=== PATIENT | female | born 1960 | race Caucasian/White ===

== ENCOUNTER 2021-03-02 17:29 | Emergency (ER) | payer OTHER ==
[2021-03-02] MEDS ORDERED: Nitroglycerin 2% Ointment 1 INCH/1 GM Packet ONE (18:02)
[2021-03-02] MEDS ORDERED: Aspirin 325 MG TAB ONE (18:02)
[2021-03-02 18:40] LABS: #Eosinphils 0.1 10x3/uL (0.0-0.5); #Monocytes 0.6 10x3/uL (0.0-1.1); #Neutrophils 7.1 10x3/uL (1.5-8.4); %Basophils 0.2 % (0.0-2.0); %Eosinophils 1.1 % (0.0-6.0); %Lymphocytes 27.8 % (18.0-47.0); %Monocytes 5.8 % (0.0-10.0); %Neutrophils 64.7 % (40.0-75.0); Mean Corpuscular HGB CONC 33.6 g/dL (32.0-36.0); Mean Corpuscular Hemoglobin 30.5 pg (27.0-33.0); Mean Corpuscular Volume 90.8 fl (81.6-98.3); Mean Platelet Volume 9.6 fl (7.4-10.4); Platelet Count 223 10x3/uL (150-450); RBC Distribution Width 13.6 % (11.5-14.5); Red Blood Cell (RBC) Count 4.26 10x6/uL (3.90-5.03); White Blood Cell (WBC) Count 10.9 10x3/uL (3.5-10.5)
[2021-03-02 18:48] LABS: ALT (SGPT) 14 U/L (8-55); AST (SGOT) 14 U/L (5-34); Albumin 4.2 g/dL (3.5-5.0); Alkaline Phosphatase 100 U/L (40-110); Anion Gap 14 mmol/L (10-20); BUN (Urea Nitrogen) 17 mg/dL (9.8-20.1); Bilirubin, Total 0.5 mg/dL (0.2-1.2); CK (CPK) 30 U/L (29-168); Calc. Creatinine Clearance 0 mL/min (70-130); Calcium 9.6 mg/dL (7.8-10.44); Carbon Dioxide 29 mmol/L (22-29); Chloride 99 mmol/L (98-107); Glucose 103 mg/dL (70-105); Lipase 19 U/L (8-78); Potassium 3.9 mmol/L (3.5-5.1); Protein, Total 7.2 g/dL (6.0-8.3); Sodium 138 mmol/L (136-145)
[2021-03-02] MEDS ORDERED: Acetaminophen 500 MG TAB ONE (21:43)
== END 2021-03-03 00:01 | disposition home or self-care (01) ==
LOC: CSHERS 17:29
DX: R07.9 Chest pain, unspecified (principal); E78.5 Hyperlipidemia, unspecified; Z86.16 Personal history of COVID-19; Z79.899 Other long term (current) drug therapy
CPT/HCPCS: 71045; 71275; 80053; 82550; 83690; 84484; 85025; 85379; 93005

== ENCOUNTER 2021-07-14 12:10 | Outpatient (CLI) | payer OTHER ==
[2021-07-15 07:47] LABS: SARS-CoV-2 PCR by NAA Not Detected (NotDetected)
== END 2021-07-14 12:11 | disposition home or self-care (01) ==
LOC: CSHLAB 12:10
PROVIDERS: ATTEND Surgery
DX: Z20.822 Contact with and (suspected) exposure to COVID-19 (principal)
CPT/HCPCS: U0003; U0005

== ENCOUNTER → 2021-07-16 | Day surgery (SDC) | payer OTHER ==
[2021-07-15 10:03] VITALS: BMI 44.4
[~2021-07-16] MED LIST: Bupivacaine PF 0.5% 30 ML VIAL ONE; EPINEPHrine 1 MG/ML AMP ONE; Fentanyl 100 MCG/2 ML VIAL ONE; Glycopyrrolate 0.2 MG/ML 5 ML SYRINGE ONE; Ketorolac Tromethamine 30 MG/ML VIAL ONE; Lidocaine 1% MPF 2 ML VIAL ONE; Lidocaine 1% PF 5 ML VIAL ONE; Midazolam HCl 2 mg/2 ml Vial ONE; Morphine 4 MG/ML VIAL ONE; Ondansetron PF 4 MG/2 ML Vial ONE; PROPOFOL 20 ML ONE; SUGAMMADEX SODIUM 500 MG/5 ML VIAL ONE; Scopolamine 1.5 mg/72 hour Patch ONE; ceFAZolin 2 GM/Dextrose 50 ML IVPB ONE; ePHEDrine Sulfate 50 MG/10 ML VIAL ONE; traMADol HCl 50 MG TAB ONE; traMADol HCl 50 MG TAB PO PRN
== END | disposition home or self-care (01) ==
LOC: CSHSDC 10:53
PROVIDERS: ATTEND Surgery
PROC: 0FT44ZZ Resection of Gallbladder, Percutaneous Endoscopic Approach (ICD-10-PCS; principal; 2021-07-16)
DX: K80.10 Calculus of gallbladder with chronic cholecystitis without obstruction (principal); Z79.899 Other long term (current) drug therapy; F41.9 Anxiety disorder, unspecified; F32.9 Major depressive disorder, single episode, unspecified; E66.9 Obesity, unspecified; E78.5 Hyperlipidemia, unspecified
CPT/HCPCS: 88304; J0171; J0690; J1885; J2250; J2270; J2405; J2704; J3010; S0020

== ENCOUNTER 2021-10-26 17:40 | Observation (INO) | payer OTHER ==
[2021-10-26 18:06] LABS: Bilirubin 1+ (Negative); Blood, Urine 50 (Negative); Clarity Cloudy (Clear); Glucose, Urine (Dipstick) Normal (Negative); Ketone, Urine 50 mg/dL (Negative); Leukocyte 500 (Negative); Nitrite Negative (Negative); Protein, Urine (Dipstick) 100 mg/dl (Neg-Trace); Specific Gravity, Urine 1.015 (1.002-1.036); pH, Urine 6.5 (5.0-9.0)
[2021-10-26 18:15] LABS: Bacteria/HPF 4+ HPF (None Seen); Mucous/LPF 3+ LPF (<2+); RBC/HPF 0-3 HPF (0-3); WBC/HPF 21-50 HPF (0-3)
[2021-10-26 18:19] LABS: #Monocytes 0.7 10x3/uL (0.0-1.1); #Neutrophils 6.8 10x3/uL (1.5-8.4); %Basophils 0.3 % (0.0-2.0); %Eosinophils 0.3 % (0.0-6.0); %Lymphocytes 19.1 % (18.0-47.0); %Neutrophils 72.3 % (40.0-75.0); Hemoglobin 12.6 g/dL (12.0-15.5); Mean Corpuscular Hemoglobin 30.1 pg (27.0-33.0); Mean Corpuscular Volume 91.2 fl (81.6-98.3); Mean Platelet Volume 9.6 fl (7.4-10.4); Platelet Count 191 10x3/uL (150-450); RBC Distribution Width 14.3 % (11.5-14.5); Red Blood Cell (RBC) Count 4.19 10x6/uL (3.90-5.03); White Blood Cell (WBC) Count 9.3 10x3/uL (3.5-10.5)
[2021-10-26 18:25] LABS: BHCG - Serum Negative (NEGATIVE); Pregs Control Background? CLEAR/WHITE (CLR/WHITE); Pregs Control Bar Appear? YES (CONTROL BAR)
[2021-10-26 18:31] LABS: ALT (SGPT) 23 U/L (8-55); AST (SGOT) 30 U/L (5-34); Albumin 4.1 g/dL (3.4-4.8); Alkaline Phosphatase 102 U/L (40-110); Anion Gap 17 mmol/L (10-20); BUN (Urea Nitrogen) 10 mg/dL (9.8-20.1); Bilirubin, Total 0.9 mg/dL (0.2-1.2); Calc. Creatinine Clearance 0 mL/min (70-130); Calcium 8.5 mg/dL (7.8-10.44); Carbon Dioxide 30 mmol/L (23-31); Chloride 99 mmol/L (98-107); Globulin 2.9 g/dL (2.4-3.5); Glucose 128 mg/dL (80-115); Lipase 9 U/L (8-78); Potassium 3.5 mmol/L (3.5-5.1); Sodium 142 mmol/L (136-145)
[2021-10-26] MEDS ORDERED: Ondansetron PF 4 MG/2 ML Vial ONE (18:34)
[2021-10-26] MEDS ORDERED: Piperacillin/Tazobactam 3.375 GM VIAL ONE (19:21)
[2021-10-26 19:30] LABS: SARS-CoV-2 NAA Rapid Test Not Detected (NotDetected)
[2021-10-26] MEDS ORDERED: Morphine 4 MG/ML VIAL ONE (20:18)
[2021-10-26] MEDS ORDERED: Ibuprofen 200 MG TAB ONE (21:42)
[2021-10-26] MEDS ORDERED: Sodium Chloride 0.9% 1,000 ML IV SCH (23:00)
[2021-10-26] MEDS: Morphine 4 MG/ML VIAL SLOW IVP PRN (23:07)
[2021-10-26] MEDS: Ondansetron PF 4 MG/2 ML Vial IVP PRN (23:09)
[2021-10-27] MEDS: Piperacillin/Tazobactam 3.375 GM in Sodium Chloride 0.9% 100 ML IVPB SCH ×2 (00:22→06:08)
[2021-10-27] MEDS: Morphine 4 MG/ML VIAL SLOW IVP PRN ×3 (02:27→22:01)
[2021-10-27 04:40] VITALS: BMI 43.0
[2021-10-27] MEDS: Ondansetron PF 4 MG/2 ML Vial IVP PRN (05:24)
[2021-10-27] MEDS ORDERED: Ondansetron PF 4 MG/2 ML Vial ONE (11:04)
[2021-10-27] MEDS ORDERED: Dexamethasone 4 mg/ml Vial ONE (11:04)
[2021-10-27] MEDS ORDERED: Fentanyl 100 MCG/2 ML VIAL ONE ×2 (11:04→12:55)
[2021-10-27] MEDS ORDERED: Bupivacaine 0.25% HCL 30 ML VIAL ONE (11:05)
[2021-10-27] MEDS ORDERED: EPINEPHrine 1 MG/ML AMP ONE (11:05)
[2021-10-27] MEDS ORDERED: Lidocaine 2% PF 5 ML VIAL ONE (11:05)
[2021-10-27] MEDS ORDERED: Succinylcholine 200 MG/10 ml SYRINGE FS ONE (11:05)
[2021-10-27] MEDS ORDERED: Ketorolac Tromethamine 30 MG/ML VIAL ONE (11:07)
[2021-10-27] MEDS ORDERED: Ondansetron PF 4 MG/2 ML Vial IVP PRN (11:10)
[2021-10-27] MEDS ORDERED: Promethazine HCl 25 MG/ML VIAL IM PRN (11:10)
[2021-10-27] MEDS ORDERED: hydrALAZINE 20 MG/ML VIAL SLOW IVP PRN (11:10)
[2021-10-27] MEDS ORDERED: Dextrose 50% Abboject 50 ML SYRINGE SLOW IVP PRN (11:10)
[2021-10-27] MEDS ORDERED: Dextrose 5% in Water 1,000 ML IV PRN (11:10)
[2021-10-27] MEDS ORDERED: ALPRAZolam 0.5 MG TAB PO PRN (11:13)
[2021-10-27] MEDS ORDERED: traMADol HCl 50 MG TAB PO PRN (11:13)
[2021-10-27] MEDS ORDERED: traZODone HCl 50 MG TAB PO PRN (11:31)
[2021-10-27] MEDS ORDERED: ePHEDrine Sulfate 50 MG/10 ML VIAL ONE (11:55)
[2021-10-27] MEDS ORDERED: Metoclopramide HCl 10 MG/2 ML VIAL ONE (12:55)
[2021-10-27] MEDS: D5 1/2 NS w/20 mEq KCL 1,000 ML IV SCH ×2 (14:00→22:03)
[2021-10-27] MEDS ORDERED: Cyclobenzaprine 10 MG TAB PO PRN (15:00)
[2021-10-27 18:56] LABS: Hemoglobin 10.1 g/dL (12.0-15.5)
[2021-10-27] MEDS: Ketorolac Tromethamine 30 MG/ML VIAL IVP SCH (18:58)
[2021-10-27] MEDS ORDERED: Sodium Chloride 0.9% 1,000 ML IV SCH (20:15)
[2021-10-27] MEDS ORDERED: Famotidine/PF 20 mg/2ml Vial SLOW IVP SCH (21:00)
[2021-10-27] MEDS ORDERED: Famotidine 20 MG TAB PO SCH (21:00)
[2021-10-28] MEDS: Morphine 4 MG/ML VIAL SLOW IVP PRN (00:37)
[2021-10-28] MEDS: Ketorolac Tromethamine 30 MG/ML VIAL IVP SCH ×2 (00:37→08:10)
[2021-10-28] MEDS: D5 1/2 NS w/20 mEq KCL 1,000 ML IV SCH (08:01)
[2021-10-28] MEDS ORDERED: Enoxaparin Sodium 40 MG/0.4 ML SYRINGE SC SCH (09:00)
[2021-10-28] MEDS ORDERED: Bupropion 150 MG XL TAB PO SCH (09:00)
[2021-10-28 13:33] VITALS: BP 96/54; TEMP 97.8
== END 2021-10-28 13:45 | disposition home or self-care (01) ==
LOC: CSHERS 17:40 → UNDOADMOB 17:41 → INTOOBSV 17:41 → CSHTELE 17:41 → UNDOADMOB 10-27 11:10 → CSHTELE 10-27 11:10 → CSHERHOLD 10-27 11:10
PROVIDERS: ADMIT Student in an Organized Health Care Education/Training Program; ATTEND Surgery
PROC: 0DTJ4ZZ Resection of Appendix, Percutaneous Endoscopic Approach (ICD-10-PCS; principal; 2021-10-27)
DX: K35.80 Unspecified acute appendicitis (principal); F41.9 Anxiety disorder, unspecified; N39.0 Urinary tract infection, site not specified; I10 Essential (primary) hypertension; E78.5 Hyperlipidemia, unspecified; F32.A Depression, unspecified; K21.9 Gastro-esophageal reflux disease without esophagitis; Z20.822 Contact with and (suspected) exposure to COVID-19; Z86.16 Personal history of COVID-19; Z88.6 Allergy status to analgesic agent; Z88.5 Allergy status to narcotic agent
CPT/HCPCS: 0240U; 36415; 71045; 74177; 80053; 81003; 81015; 83605; 83690; 84484; 84703; 85014; 85018; 85025; 87040; 87086; 87149; 88304; 93005; 93010; 96374; 96375; 96376; A4649; G0378; J0171; J1100; J1885; J2001; J2270; J2405; J2543; J2765; J3010; J3480; J3490; J7050; S0020

== ENCOUNTER 2022-06-24 08:21 | Outpatient (CLI) | payer BC | END 2022-06-24 08:22 | disposition home or self-care (01) | LOC: CSHMAMMO 08:21 | PROVIDERS: ATTEND Family Medicine | DX: Z12.31 Encounter for screening mammogram for malignant neoplasm of breast (principal); Z80.3 Family history of malignant neoplasm of breast; Z91.89 Other specified personal risk factors, not elsewhere classified | CPT/HCPCS: 77063; 77067 ==

== ENCOUNTER 2023-09-15 14:18 | Outpatient (CLI) | payer BC | END 2023-09-15 14:19 | disposition home or self-care (01) | LOC: CSHMRI 14:18 | PROVIDERS: ATTEND Neurological Surgery | DX: M47.22 Other spondylosis with radiculopathy, cervical region (principal); Z98.1 Arthrodesis status; E04.1 Nontoxic single thyroid nodule | CPT/HCPCS: 72040; 72141 ==

== ENCOUNTER 2023-09-22 13:11 | Outpatient (CLI) | payer BC | END 2023-09-22 13:12 | disposition home or self-care (01) | LOC: CSHULT 13:11 | PROVIDERS: ATTEND Neurological Surgery | DX: E04.1 Nontoxic single thyroid nodule (principal); E04.2 Nontoxic multinodular goiter | CPT/HCPCS: 76536 ==

== ENCOUNTER 2024-05-02 09:37 | Inpatient (IN) | payer BC ==
[2024-05-02 10:29] LABS: #Basophils 0.03 10x3/uL (0.0-0.2); #Eosinphils 0.13 10x3/uL (0.0-0.5); %Basophils 0.3 % (0.0-2.0); %Eosinophils 1.3 % (0.0-6.0); %Lymphocytes 23.6 % (18.0-47.0); %Monocytes 5.1 % (0.0-10.0); %Neutrophils 69.1 % (40.0-75.0); Hematocrit 38.4 % (34.9-44.5); Hemoglobin 13.3 g/dL (12.0-15.5); Mean Corpuscular HGB CONC 34.6 g/dL (32.0-36.0); Mean Corpuscular Volume 89.5 fL (81.6-98.3); Mean Platelet Volume 9.5 fL (7.4-10.4); Platelet Count 217 10x3/uL (150-450); RBC Distribution Width 13.1 % (11.5-14.5); Red Blood Cell (RBC) Count 4.29 10x6/uL (3.90-5.03); White Blood Cell (WBC) Count 9.7 10x3/uL (3.5-10.5)
[2024-05-02 10:38] LABS: PTT 22.4 sec (22.0-33.0); Prothrombin Time 10.5 sec (9.5-12.1)
[2024-05-02 10:48] LABS: ALT (SGPT) 25 U/L (8-55); AST (SGOT) 23 U/L (5-34); Albumin 3.5 g/dL (3.4-4.8); Alkaline Phosphatase 96 U/L (40-110); Anion Gap 14 mmol/L (10-20); BUN (Urea Nitrogen) 9 mg/dL (9.8-20.1); Bilirubin, Total 0.6 mg/dL (0.2-1.2); Calc. Creatinine Clearance 0 mL/min (70-130); Carbon Dioxide 28 mmol/L (23-31); Chloride 102 mmol/L (98-107); Estimated GFR 85; Glucose 135 mg/dL (80-115); Lipase 17 U/L (8-78); Magnesium 1.4 mg/dL (1.6-2.6); Potassium 3.9 mmol/L (3.5-5.1); Protein, Total 6.5 g/dL (5.8-8.1); Sodium 140 mmol/L (136-145)
[2024-05-02] MEDS ORDERED: Iopamidol 300 61% 100 ML VIAL FS ONE (10:48)
[2024-05-02 10:50] LABS: Troponin I 0.033 ng/mL (< 0.028)
[2024-05-02] MEDS ORDERED: Nitroglycerin 0.4 MG TAB 1 EACH ONE ×2 (10:51→12:36)
[2024-05-02] MEDS ORDERED: Aspirin Chewable 81 MG TAB ONE (10:56)
[2024-05-02 15:12] LABS: Troponin I 0.034 ng/mL (< 0.028)
[2024-05-02] MEDS: Magnesium 2 GM/50 ML(in water) 2 GM in Premix 1 BAG IVPB SCH (17:34)
[2024-05-02] MEDS: Furosemide 20 MG (2 mL) VIAL SLOW IVP SCH (17:35)
[2024-05-02] MEDS ORDERED: Ondansetron ODT 4 MG TAB PO PRN (18:04)
[2024-05-02] MEDS ORDERED: Ondansetron PF 4 MG/2 ML Vial IVP PRN (18:04)
[2024-05-02 18:05] LABS: Troponin I 0.026 ng/mL (< 0.028)
[2024-05-02] MEDS ORDERED: Melatonin 3 MG TAB PO PRN (18:50)
[2024-05-02] MEDS ORDERED: traZODone HCl 50 MG TAB PO PRN (18:50)
[2024-05-02] MEDS: Naproxen 500 MG TAB PO SCH (20:38)
[2024-05-02] MEDS: tiZANidine HCl 4 MG TAB PO SCH (20:39)
[2024-05-02] MEDS ORDERED: tiZANidine HCl 4 MG TAB PO SCH (21:00)
[2024-05-03 05:08] LABS: #Basophils 0.04 10x3/uL (0.0-0.2); #Eosinphils 0.15 10x3/uL (0.0-0.5); #Monocytes 0.57 10x3/uL (0.0-1.1); #Neutrophils 5.62 10x3/uL (1.5-8.4); %Basophils 0.4 % (0.0-2.0); %Eosinophils 1.5 % (0.0-6.0); %Lymphocytes 35.1 % (18.0-47.0); %Monocytes 5.8 % (0.0-10.0); %Neutrophils 56.9 % (40.0-75.0); Hematocrit 35.6 % (34.9-44.5); Hemoglobin 12.3 g/dL (12.0-15.5); Mean Corpuscular HGB CONC 34.6 g/dL (32.0-36.0); Mean Corpuscular Hemoglobin 30.9 pg (27.0-33.0); Mean Corpuscular Volume 89.4 fL (81.6-98.3); Mean Platelet Volume 9.3 fL (7.4-10.4); Platelet Count 231 10x3/uL (150-450); RBC Distribution Width 13.3 % (11.5-14.5); Red Blood Cell (RBC) Count 3.98 10x6/uL (3.90-5.03); White Blood Cell (WBC) Count 9.9 10x3/uL (3.5-10.5)
[2024-05-03 05:16] LABS: Anion Gap 14 mmol/L (10-20); BUN (Urea Nitrogen) 12 mg/dL (9.8-20.1); Calc. Creatinine Clearance 0 mL/min (70-130); Calcium 8.6 mg/dL (7.8-10.44); Carbon Dioxide 30 mmol/L (23-31); Chloride 99 mmol/L (98-107); Estimated GFR 76; Glucose 120 mg/dL (80-115); Potassium 4.1 mmol/L (3.5-5.1); Sodium 139 mmol/L (136-145)
[2024-05-03] MEDS: Naproxen 500 MG TAB PO SCH (06:28)
[2024-05-03] MEDS: Atorvastatin Calcium 20 MG TAB PO SCH (08:19)
[2024-05-03] MEDS: Enoxaparin 40 MG (0.4 mL) SYRINGE SC SCH (08:19)
[2024-05-03] MEDS: Potassium Chloride 20 MEQ TAB PO SCH ×2 (08:19→19:03)
[2024-05-03] MEDS: Pantoprazole DR 40 MG TAB PO SCH (08:19)
[2024-05-03] MEDS: BuPROPion XL 150 MG ER.TAB PO SCH (08:19)
[2024-05-03] MEDS: Furosemide 20 MG (2 mL) VIAL SLOW IVP SCH (08:19)
[2024-05-03] MEDS: ALPRAZolam 0.5 MG TAB PO PRN (08:20)
[2024-05-03] MEDS: Furosemide 40 MG TAB PO SCH (13:39)
[2024-05-03] MEDS: Fluticasone Propionate Nasal Spray 16 gm Bottle NASAL SCH (13:40)
[2024-05-03] MEDS ORDERED: Furosemide 20 MG (2 mL) VIAL SLOW IVP SCH (14:00)
[2024-05-03] MEDS: tiZANidine HCl 4 MG TAB PO SCH (22:22)
[2024-05-04 04:58] LABS: #Basophils 0.04 10x3/uL (0.0-0.2); #Eosinphils 0.19 10x3/uL (0.0-0.5); #Monocytes 0.74 10x3/uL (0.0-1.1); #Neutrophils 5.62 10x3/uL (1.5-8.4); %Basophils 0.4 % (0.0-2.0); %Eosinophils 1.8 % (0.0-6.0); %Lymphocytes 38.5 % (18.0-47.0); %Monocytes 6.9 % (0.0-10.0); %Neutrophils 51.9 % (40.0-75.0); Hematocrit 37.7 % (34.9-44.5); Hemoglobin 12.8 g/dL (12.0-15.5); Mean Corpuscular Hemoglobin 30.8 pg (27.0-33.0); Mean Corpuscular Volume 90.8 fL (81.6-98.3); Mean Platelet Volume 9.8 fL (7.4-10.4); Platelet Count 230 10x3/uL (150-450); RBC Distribution Width 13.4 % (11.5-14.5); Red Blood Cell (RBC) Count 4.15 10x6/uL (3.90-5.03); White Blood Cell (WBC) Count 10.8 10x3/uL (3.5-10.5)
[2024-05-04 05:12] LABS: Anion Gap 14 mmol/L (10-20); BUN (Urea Nitrogen) 19 mg/dL (9.8-20.1); Calc. Creatinine Clearance 110 mL/min (70-130); Calcium 8.9 mg/dL (7.8-10.44); Carbon Dioxide 29 mmol/L (23-31); Chloride 99 mmol/L (98-107); Estimated GFR 63; Glucose 127 mg/dL (80-115); Sodium 138 mmol/L (136-145)
[2024-05-04] MEDS: Loratadine 10 MG TAB PO SCH (09:51)
[2024-05-04] MEDS: Fluticasone Propionate Nasal Spray 16 gm Bottle NASAL SCH (09:57)
[2024-05-04] MEDS ORDERED: traZODone HCl 50 MG TAB PO PRN (14:15)
[2024-05-04] MEDS ORDERED: Melatonin 3 MG TAB PO PRN (14:15)
[2024-05-04 16:43] VITALS: BP 122/70; TEMP 98.9
== END 2024-05-04 19:06 | disposition home or self-care (01) | DRG 281 ==
LOC: CSHERS 09:37 → CSHTELE 15:38
PROVIDERS: ADMIT Family Medicine; ATTEND Family Medicine
DX: I11.0 Hypertensive heart disease with heart failure (principal); Z68.45 Body mass index [BMI] 70 or greater, adult; I21.A1 Myocardial infarction type 2; I50.9 Heart failure, unspecified; E78.5 Hyperlipidemia, unspecified; F41.9 Anxiety disorder, unspecified; I25.10 Atherosclerotic heart disease of native coronary artery without angina pectoris; K21.9 Gastro-esophageal reflux disease without esophagitis; E66.9 Obesity, unspecified; R79.89 Other specified abnormal findings of blood chemistry; E83.42 Hypomagnesemia; M54.2 Cervicalgia; G89.29 Other chronic pain; Z88.5 Allergy status to narcotic agent; Z79.899 Other long term (current) drug therapy; Z90.49 Acquired absence of other specified parts of digestive tract; Z98.890 Other specified postprocedural states; Z98.1 Arthrodesis status
CPT/HCPCS: 36415; 71045; 71275; 80048; 80053; 83690; 83735; 83880; 84443; 84484; 85025; 85610; 85730; 93005; 93306; 96374; J1650; J1940; J3475; Q9967

== ENCOUNTER 2024-09-14 11:21 | Outpatient (CLI) | payer BC | END 2024-09-14 11:22 | disposition home or self-care (01) | LOC: CSHULT 11:21 | PROVIDERS: ATTEND Family Medicine | DX: E04.1 Nontoxic single thyroid nodule (principal) | CPT/HCPCS: 76536 ==